=== PATIENT | female | born 1945 | race Caucasian/White ===

== ENCOUNTER 2024-02-28 10:25 | Emergency (ER) | payer MEDICARE, SELFPAY ==
[2024-02-28] VITALS (25 sets, daily range): BP systolic 97–153; BP diastolic 42–73; PULSE 65–93; O2SAT 84–97; BMI 26.6
--- NOTE | 2024-02-28 10:36 | ECG_ITS ---
[facility] Test Date: 2024-02-28 Pat Name: WALE CARLSON Department: Room: - Gender: Female [employer] Operator: : 1945 Requested By: Order Number: [id number] Reading MD: DANNA BLANCO Measurements Intervals [place] Rate: 82 P: 72 WV: 138 QRS: 75 QRSD: 92 T: 69 QT: 410 QTc: 449 Interpretive Statements [address] In[address] ST/T wave changes, can't exclude myocardial ischemia 9110 normal ECG Electronically Signed On 02-29-2024 16:47:31 EDT by DANNA BLANCO
--- NOTE | 2024-02-28 10:37 | ED_ITS ---
HPI HPI - General Adult General Chief complaint: Abdominal Pain Stated complaint: NAUSEA Time Seen by Provider: 02/28/24 10:28 Source: patient Mode of arrival: ambulance Limitations: no limitations History of Present Illness HPI narrative: 79-year-old female presents to the emergency department for nausea and vomiting. She was fine last night and she woke up and she was fine. She had a couple coffee and she read for an hour and then she had a second cup of coffee and took some medication and then she started getting nauseous and vomited and had diarrhea as well. The patient states that she only came here because her daughter panicked and called the squad. She does not complain of abdominal pain and she has not had a fever or hematemesis. Related Data Home Medications ?Medication ?Instructions ?Recorded ?Confirmed amlodipine 10 mg tablet 10 mg PO DAILY 02/28/24 02/28/24 atorvastatin 80 mg tablet 80 mg PO DAILY 02/28/24 02/28/24 buspirone 10 mg tablet 10 mg PO TID PRN anxiety 02/28/24 02/28/24 fluoxetine 20 mg capsule 60 mg PO DAILY 02/28/24 02/28/24 lisinopril 40 mg tablet 40 mg PO DAILY 02/28/24 02/28/24 Previous Rx's ?Medication ?Instructions ?Recorded ondansetron 4 mg disintegrating 4 mg PO Q6H PRN nausea and 02/28/24 tablet vomiting #20 tabs Allergies Allergy/AdvReac Type Severity Reaction Status Date / Time No Known Drug Allergies Allergy Verified 02/28/24 10:33 Opioid HPI Opioid Management Most Recent Opioid Data: Last ED Pain Assessment 02/28/24 12:54 Review of Systems ROS Narrative A ten point review of systems is negative except as noted above. Exam Narrative Exam Narrative: Nurses note and vital signs reviewed and patient is not hypoxic. General: The patient appears well and in no apparent distress. Patient is resting comfortably on cart. Skin: Warm, dry, no pallor noted. There is no rash noted. Head: Normocephalic, atraumatic Eye: Normal conjunctiva, no drainage Ears, Nose, Mouth, and Throat: oral mucosa is somewhat dry. Nares patent. Cardiovascular: Regular Rate and Rhythm Respiratory: Patient is in no distress, no accessory muscle use, lungs are clear to auscultation, no wheezing, rales or rhonchi Back: non-tender GI: Soft and nontender and nondistended. Musculoskeletal: The patient has no evidence of calf tenderness, no pitting edema, symmetrical pulses noted bilaterally Neurological: A&O, normal speech Psychiatric: Cooperative Constitutional Vital Signs, click to edit/add: Last Vital Signs Pulse 85 02/28/24 12:50 Resp 18 02/28/24 12:50 BP 97/58 02/28/24 12:31 Pulse Ox 94 L 02/28/24 12:56 O2 Del Method Room Air 02/28/24 10:46 Course Vital Signs Vital signs: Vital Signs Pulse Rate 82 02/28/24 10:30 Respiratory Rate 22 H 02/28/24 10:30 Blood Pressure 107/64 02/28/24 10:30 Pulse Oximetry 95 02/28/24 10:30 Oxygen Delivery Method Room Air 02/28/24 10:30 Pulse Rate 85 02/28/24 12:50 Respiratory Rate 18 02/28/24 12:50 Blood Pressure 97/58 02/28/24 12:31 Pulse Oximetry 94 L 02/28/24 12:56 Oxygen Delivery Method Room Air 02/28/24 10:[address] [facility] Narrative Medical decision making narrative: WBC was elevated and CAT scan read by radiologist suggest possibility of colitis. She has no symptoms now. Repeat physical examination at 1:45 PM shows no tenderness whatsoever anywhere on her abdomen. She states she feels back to normal now and she is tolerating p.o. liquids and she is able to be discharged home. I do not clinically suspect colitis. Treatment diagnosis and follow-up were discussed with the patient. Differential Diagnosis Differential Diagnosis: Gastroenteritis, food poisoning, dehydration Lab Data Lab results reviewed: Yes I reviewed the patient's lab results Labs: Lab Results 02/28/24 Range/Units 11:18 WBC 22.0 H (4.0-11.0) 10^3/uL RBC 4.76 (4.20-5.40) 10^6/uL Hgb 14.2 (12.0-16.0) g/dL Hct 43.6 (36.0-48.0) % MCV 91.6 (81.0-99.0) fL MCH 29.8 (26.7-34.0) pg MCHC 32.6 (29.9-35.2) g/dL RDW 12.7 (11.0-15.0) % Plt Count 302 (150-450) 10^3/uL MPV 8.9 L (9.5-13.5) fL Neut % (Auto) 82.9 H (43.0-75.0) % Lymph % (Auto) 8.8 L (20.5-60.0) % [place] % (Auto) 6.0 (1.7-12.0) % Eos % (Auto) 0.8 L (0.9-7.0) % Baso % (Auto) 0.8 (0.2-2.0) % Neut # (Auto) 18.2 H (1.4-6.5) 10^3/uL Lymph # (Auto) 1.9 (1.2-3.8) 10^3/uL [place] # (Auto) 1.3 H (0.3-0.8) 10^3/uL Eos # (Auto) 0.2 (0.0-0.7) 10^3/uL Baso # (Auto) 0.2 H (0.0-0.1) 10^3/uL Abs Immat Gran (auto) 0.15 H (0.00-0.03) 10^3/uL Imm/Tot Granulo (auto) 0.7 H (0.0-0.5) % Sodium 140 (136-145) mmol/L Potassium 3.8 (3.5-5.1) mmol/L Chloride 106 (98-107) mmol/L Carbon Dioxide 17.3 L (21.0-32.0) mmol/L Anion Gap 20.5 BUN 18.0 (7.0-18.0) mg/dL Creatinine 1.42 H (0.55-1.02) mg/dL Est GFR ( Amer) 43 L (>=60) Est GFR (Non-Af Amer) 36 L (>=60) BUN/Creatinine Ratio 12.7 Glucose 206 H (74-106) mg/dL Calcium 9.2 (8.5-10.1) mg/dL Imaging Data CT scan - abdomen: Radiologist's impression: ITS Impressions Abdomen/Pelvis CT 02/28/24 11:53 IMPRESSION: 1. Most of the colon is abnormal with findings suggesting colitis except for the cecum which contains fluid is located in the pelvis near the rectum. No pneumatosis, pneumoperitoneum or pericolonic fluid. Correlate clinically. 2. Other incidental findings noted above. No acute process lower chest. Electronically authenticated by: AKHIL COLIN Date: 02/28/2024 13:31 ECG Data Attestation: I personally reviewed and interpreted this ECG as follows: (EKG on my interpretation shows sinus rhythm without acute change and a rate of 82.) Discharge Plan Discharge Stand Alone Forms: Portal Instructions Chief Complaint: Abdominal Pain Clinical Impression: Nausea and vomiting Patient Disposition: Home, Self-Care Time of Disposition Decision: 13:48 Condition: Good Mode of Transportation: Private Vehicle Prescriptions / Home Meds: New ondansetron 4 mg tablet,disintegrating 4 mg PO Q6H PRN (Reason: nausea and vomiting) Qty: 20 0RF No Action atorvastatin 80 mg tablet 80 mg PO DAILY amlodipine 10 mg tablet 10 mg PO DAILY buspirone 10 mg tablet 10 mg PO TID PRN (Reason: anxiety) fluoxetine 20 mg capsule 60 mg PO DAILY lisinopril 40 mg tablet 40 mg PO DAILY Print Language: Mongolian Instructions: Acute Nausea and Vomiting (ED) Referrals: TAYLA YANG [Primary Care Provider] - 1 week
[2024-02-28] MEDS: ONDANSETRON PF 4 MG/2 ML VIAL IV (10:42)
[2024-02-28] MEDS: 0.9 % SODIUM CHLORIDE 500 ML IV (10:50)
[2024-02-28] MEDS: ACETAMINOPHEN 300 MG/ 30 MG CODEINE TABLET 1 TAB PO (11:01)
[2024-02-28 11:25] LABS: Basophils Absolute Auto 0.2 10^3/uL (0.0-0.1); Basophils Percent Auto 0.8 % (0.2-2.0); Eosinophils Absolute Auto 0.2 10^3/uL (0.0-0.7); Eosinophils Percent Auto 0.8 % (0.9-7.0); Hematocrit 43.6 % (36.0-48.0); Hemoglobin 14.2 g/dL (12.0-16.0); Immature Granulocytes Abs Auto 0.15 10^3/uL (0.00-0.03); Immature Granulocytes Pct Auto 0.7 % (0.0-0.5); Lymphocytes Absolute Auto 1.9 10^3/uL (1.2-3.8); Lymphocytes Percent Auto 8.8 % (20.5-60.0); Mean Corpuscular HGB Conc 32.6 g/dL (29.9-35.2); Mean Corpuscular Hemoglobin 29.8 pg (26.7-34.0); Mean Corpuscular Volume 91.6 fL (81.0-99.0); Mean Platelet Volume 8.9 fL (9.5-13.5); Monocytes Absolute Auto 1.3 10^3/uL (0.3-0.8); Neutrophils Absolute Auto 18.2 10^3/uL (1.4-6.5); Neutrophils Percent Auto 82.9 % (43.0-75.0); Platelet Count 302 10^3/uL (150-450); Red Blood Count 4.76 10^6/uL (4.20-5.40); Red Cell Distribution Width 12.7 % (11.0-15.0)
[2024-02-28 11:33] LABS: Anion Gap 20.5; BUN Creatinine Ratio 12.7; Calcium 9.2 mg/dL (8.5-10.1); Carbon Dioxide 17.3 mmol/L (21.0-32.0); Chloride 106 mmol/L (98-107); Estimated GFR (African America 43 (>=60); Estimated GFR (Non-African Ame 36 (>=60); Glucose 206 mg/dL (74-106); Potassium 3.8 mmol/L (3.5-5.1); Sodium 140 mmol/L (136-145)
--- NOTE | 2024-02-28 11:53 | CT_ITS ---
The [address] [address] Patient Name: WALE CARLSON MRN: [id number] date: 1945 Sex: F Assigned Patient Location: ER Current Patient Location: ER Accession/Order Number: [id number] Exam Date: 02/28/2024 12:03 Report Date: 02/28/2024 13:31 At the request of: ESEQUIEL HERRERA Procedure: CT abdomen pelvis w con EXAM: CT abdomen pelvis w con HISTORY: Nausea and vomiting, WBC 22,000 COMPARISON: None. TECHNIQUE: CT abdomen pelvis with contrast 100 mL Omnipaque 300. Axial scans with multiplanar reformatted images. Individualized dose reduction used for this exam. FINDINGS: Motion artifact, limited patient cooperation. Lower chest: Mild emphysema. No acute process. ABDOMEN: Bowel: The colon is abnormal. Prominent fluid-filled cecum lies in the pelvis near the rectum. There is bowel wall thickening and enhancement of the ascending transverse colon, left colon and pelvic colon to the rectum suggesting colitis. No pneumatosis seen. No significant pericolonic fluid identified. Small bowel demonstrates mildly prominent loops, which contain fluid. No evidence of small bowel obstruction. No gastric distention. Small hiatal hernia lower chest. Unremarkable liver except for a small area low-attenuation fluid-filled gallbladder, no biliary dilatation. Liver unremarkable except for a small area of low attenuation right lobe posterior tip. Normal fluid-filled gallbladder. No biliary dilatation. Right adrenal unremarkable. Nodular left adrenal gland. Pancreas, spleen unremarkable. No abdominal ascites or pneumoperitoneum. No adenopathy. No evidence of aortic dilatation. Moderate to severe aortic calcification and pelvic artery calcification. Contrast seen in the mesenteric vessels and renal arteries. Symmetric renal enhancement without obstruction or hydronephrosis. Normal ureters. Central calcifications likely vascular. Pelvis: Fluid-filled bladder. Prominent cecum containing fluid in the pelvis along the right side of the rectum. Thickening of the wall sigmoid colon and rectum as noted above. No free fluid. No adenopathy. MUSCULOSKELETAL: No suspicious bone lesion or pathologic CT/CT abdomen pelvis w con IMPRESSION: 1. Most of the colon is abnormal with findings suggesting colitis except for the cecum which contains fluid is located in the pelvis near the rectum. No pneumatosis, pneumoperitoneum or pericolonic fluid. Correlate clinically. 2. Other incidental findings noted above. No acute process lower chest. Electronically authenticated by: AKHIL COLIN Date: 02/28/2024 13:31
== END 2024-02-28 14:30 | disposition home or self-care (01) ==
PROVIDERS: Emergency Provider Emergency Medicine; PCP Family Medicine
DX: R11.2 Nausea with vomiting, unspecified (principal)
CPT/HCPCS: 36415; 74177; 80048; 85025; 93005; 96374; 99285; J2405; Q9967